=== PATIENT | female | born 1990 | race American Indian/Alaskan Native ===

== ENCOUNTER 2021-09-04 13:36 | Emergency (ER) | payer OTHER ==
[2021-09-04 13:56] VITALS: BP 133/63; PULSE 107
[2021-09-04] MEDS ORDERED: FLU Vacc QS2021-22 36MOS UP/PF 60 MCG/0.5 ML Syringe IM ONE (14:30)
[2021-09-04] MEDS ORDERED: Ondansetron 4 MG/2 ML SDV IVPUSH ONE (14:32)
[2021-09-04] MEDS ORDERED: Sodium Chloride 0.9% 10 ML Syringe FLUSH PRN ×2 (14:32→14:43)
[2021-09-04] MEDS ORDERED: Iopamidol 612 MG/ML 50 ML SDV IVPUSH ONE (14:43)
[2021-09-04] MEDS ORDERED: Iopamidol 612 MG/ML 100 ML Bottle IVPUSH ONE (14:43)
--- NOTE | 2021-09-04 14:48 | EDM.PDOC ---
ED HPI GENERAL MEDICAL PROBLEM - General Chief Complaint: Behavioral/Psych Stated Complaint: R SIDE ABDOMINAL PAIN Time Seen by Provider: 09/04/21 14:23 Source of Information: Reports: Patient, RN Notes Reviewed History Limitations: Reports: No Limitations - History of Present Illness INITIAL COMMENTS - FREE TEXT/NARRATIVE: Patient is a 31-year-old female who presents to the ER for the evaluation of her right upper quadrant abdominal pain. Patient states that she was diagnosed with cirrhosis and AIDS in [place] in November 2020 through an ER. Patient states she is concerned about her increasing right upper quadrant abdominal pain due to the diagnosis of AIDS and cirrhosis. States that the pain seems to worsen after she eats, and her last food intake were some chicken strips and fries and did note that the pain was worse after this. Having some nausea but no vomiting. States her last bowel movement was yesterday and that was normal for her. States she has not had any diarrhea type stools. Has not tried any [id number] medications for the pain. Other than obesity, "AIDS and cirrhosis" patient denies any past medical history. Not having any fevers or chills, cough or shortness of breath. - Related Data Allergies Allergy/AdvReac Type Severity Reaction Status Date / Time erythromycin base Allergy Hives Verified 09/04/21 14:01 strawberry Allergy Swelling Verified 08/12/20 11:27 sulfamethoxazole Allergy Hives Verified 09/04/21 14:01 [From Bactrim] trimethoprim [From Bactrim] Allergy Hives Verified 09/04/21 14:01 Home Meds: Home Meds . 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 ED EXAM, GI/ABD - Physical Exam Exam: See Below Exam Limited By: No Limitations General Appearance: Alert, WD/WN, No Apparent Distress Respiratory/Chest: No Respiratory Distress, Lungs Clear, Normal Breath Sounds, No Accessory Muscle Use, Chest Non-Tender Cardiovascular: Normal Peripheral Pulses, Regular Rate, Rhythm, No Edema GI/Abdominal Exam: Normal Bowel Sounds, Soft, No Distention, No Mass, Tender (RUQ abd pain) Extremities: Normal Inspection, Normal Capillary Refill Neurological: Alert, Oriented, Normal Cognition, No Motor/Sensory Deficits Psychiatric: Normal Affect, Normal Mood Skin Exam: Warm, Dry, Intact, Normal Color, No Rash Course - Vital Signs Last Recorded V/S: Last Vital Signs Temp 97.5 F 09/04/21 13:51 Pulse 107 H 09/04/21 13:51 Resp 16 09/04/21 13:51 BP 133/63 09/04/21 13:51 Pulse Ox 95 09/04/21 13:51 - Orders/Labs/Meds Orders: Active Orders 24 hr Category Date Time Status Peripheral IV Care [RC] . DIRECTED Care 09/04/21 14:32 Ordered Vaccine to be Administered/Admin Charge [RC] ASDIRECTED Care 09/04/21 14:08 Active GAMMA GLUTAMYL TRANSFERASE,GGT [CHEM] Stat Lab 09/04/21 14:32 Ordered LIPASE [CHEM] Stat Lab 09/04/21 14:32 Ordered Sodium Chloride 0.9% [Saline Flush] Med 09/04/21 14:32 Ordered 10 ml FLUSH ASDIRECTED PRN Sodium Chloride 0.9% [Saline Flush] Med 09/04/21 14:43 Active 10 ml FLUSH ONETIME PRN Peripheral IV Insertion Adult [OM.PC] Routine Oth 09/04/21 14:32 Ordered Medication Orders Sodium Chloride (Sodium Chloride 0.9% 10 Ml Syringe) 10 ml FLUSH ASDIRECTED PRN PRN Reason: Keep Vein Open Last Admin: 09/04/21 15:03 Dose: 10 ml Documented by: SHIMA Sodium Chloride (Sodium Chloride 0.9% 10 Ml Syringe) 10 ml FLUSH ONETIME PRN PRN Reason: IV FLUSH Last Admin: 09/04/21 15:28 Dose: 10 ml Documented by: VELASQUEZ Labs: Laboratory Tests 09/04/21 09/04/21 09/04/21 Range/Units 15:00 15:00 15:00 WBC 10.42 H (3.98-10.04) K/mm3 RBC 4.65 (3.98-5.22) M/mm3 Hgb 12.4 D (11.2-15.7) gm/dl Hct 38.6 (34.1-44.9) % MCV 83.0 (79.4-94.8) fl MCH 26.7 (25.6-32.2) pg MCHC 32.1 L (32.2-35.5) g/dl RDW Std Deviation 40.9 (36.4-46.3) fL Plt Count 333 (182-369) K/mm3 MPV 9.6 (9.4-12.3) fl Neut % (Auto) 79.4 H (34.0-71.1) % Lymph % (Auto) 14.4 L (19.3-51.7) % [place] % (Auto) 5.0 (4.7-12.5) % Eos % (Auto) 0.9 (0.7-5.8) Baso % (Auto) 0.1 (0.1-1.2) % Neut # (Auto) 8.28 H (1.56-6.13) K/mm3 Lymph # (Auto) 1.50 (1.18-3.74) K/mm3 [place] # (Auto) 0.52 H (0.24-0.36) K/mm3 Eos # (Auto) 0.09 (0.04-0.36) K/mm3 Baso # (Auto) 0.01 (0.01-0.08) K/mm3 Sodium 140 (136-145) mEq/L Potassium 3.5 (3.5-5.1) mEq/L Chloride 104 (98-107) mEq/L Carbon Dioxide 27 (21-32) mEq/L Anion Gap 12.5 (5-15) BUN 15 (7-18) mg/dL Creatinine 0.7 (0.55-1.02) mg/dL Est Cr Clr Drug Dosing TNP Estimated GFR (MDRD) > 60 (>60) mL/min BUN/Creatinine Ratio 21.4 H (14-18) Glucose 101 H (70-99) mg/dL Calcium 8.6 (8.5-10.1) mg/dL Total Bilirubin 0.5 (0.2-1.0) mg/dL AST 23 (15-37) U/L ALT 20 (14-59) U/L Alkaline Phosphatase 82 (46-116) U/L Total Protein 7.8 (6.4-8.2) g/dl Albumin 3.4 (3.4-5.0) g/dl Globulin 4.4 gm/dL Albumin/Globulin Ratio 0.8 L (1-2) TSH 3rd Generation 0.829 (0.358-3.74) uIU/mL Urine HCG, Qual (NEGATIVE) Salicylates 1.3 L (2.8-20) mg/dL Urine Opiates Screen (VLHHHC=111) Ur Buprenorphine Scrn (CUTOFF=10) Ur Oxycodone Screen (VVS4CY=337) Urine Methadone Screen (LIAUZR=222) Ur Propoxyphene Screen (FETISI=433) Acetaminophen 0 L (10-30) ug/mL Ur Barbiturates Screen (PTOSAX=667) Ur Tricyclics Screen (CDWLNV=211) Ur Phencyclidine Scrn (CUTOFF=25) Ur Amphetamine Screen (GCWJTX=014) U Methamphetamines Scrn (GQDEIA=828) U Benzodiazepines Scrn (IJXWXJ=643) U Cocaine Metab Screen (QBCIDJ=153) U Marijuana (THC) Screen (CUTOFF=50) Ethyl Alcohol 0.00 (0.00) gm% Influenza Type A RNA (NEGATIVE) Influenza Type B RNA (NEGATIVE) SARS-CoV-2 RNA (WILL) (NEGATIVE) 09/04/21 09/04/21 09/04/21 Range/Units 15:05 15:07 15:18 WBC (3.98-10.04) K/mm3 RBC (3.98-5.22) M/mm3 Hgb (11.2-15.7) gm/dl Hct (34.1-44.9) % MCV (79.4-94.8) fl MCH (25.6-32.2) pg MCHC (32.2-35.5) g/dl RDW Std Deviation (36.4-46.3) fL Plt Count (182-369) K/mm3 MPV (9.4-12.3) fl Neut % (Auto) (34.0-71.1) % Lymph % (Auto) (19.3-51.7) % Sol[place] % (Auto) (4.7-12.5) % Eos % (Auto) (0.7-5.8) Baso % (Auto) (0.1-1.2) % Neut # (Auto) (1.56-6.13) K/mm3 Lymph # (Auto) (1.18-3.74) K/mm3 Sol[place] # (Auto) (0.24-0.36) K/mm3 Eos # (Auto) (0.04-0.36) K/mm3 Baso # (Auto) (0.01-0.08) K/mm3 Sodium (136-145) mEq/L Potassium (3.5-5.1) mEq/L Chloride (98-107) mEq/L Carbon Dioxide (21-32) mEq/L Anion Gap (5-15) BUN (7-18) mg/dL Creatinine (0.55-1.02) mg/dL Est Cr Clr Drug Dosing Estimated GFR (MDRD) (>60) mL/min BUN/Creatinine Ratio (14-18) Glucose (70-99) mg/dL Calcium (8.5-10.1) mg/dL Total Bilirubin (0.2-1.0) mg/dL AST (15-37) U/L ALT (14-59) U/L Alkaline Phosphatase (46-116) U/L Total Protein (6.4-8.2) g/dl Albumin (3.4-5.0) g/dl Globulin gm/dL Albumin/Globulin Ratio (1-2) TSH 3rd Generation (0.358-3.74) uIU/mL Urine HCG, Qual Negative (NEGATIVE) Salicylates (2.8-20) mg/dL Urine Opiates Screen Presumptive positive H (CXRBTJ=152) Ur Buprenorphine Scrn Negative (CUTOFF=10) Ur Oxycodone Screen Negative (HGW7PE=730) Urine Methadone Screen Negative (QZMYAY=875) Ur Propoxyphene Screen Negative (IILUVK=342) Acetaminophen (10-30) ug/mL Ur Barbiturates Screen Negative (TKXUMM=986) Ur Tricyclics Screen Negative (LDVRYG=495) Ur Phencyclidine Scrn Negative (CUTOFF=25) Ur Amphetamine Screen Presumptive positive H (BLEBIW=334) U Methamphetamines Scrn Presumptive positive H (ENEZCV=412) U Benzodiazepines Scrn Negative (ISUOIZ=332) U Cocaine Metab Screen Negative (RSJYBW=068) U Marijuana (THC) Screen Presumptive positive H (CUTOFF=50) Ethyl Alcohol (0.00) gm% Influenza Type A RNA Negative (NEGATIVE) Influenza Type B RNA Negative (NEGATIVE) SARS-CoV-2 RNA (WILL) Negative (NEGATIVE) Meds: Medications Generic Name Dose Route Start Last Admin Trade Name Freq PRN Reason Stop Dose Admin Sodium Chloride 10 ml 09/04/21 14:32 09/04/21 15:03 Sodium Chloride 0.9% 10 Ml Syringe FLUSH 10 ml ASDIRECTED PRN Administration Keep Vein Open Sodium Chloride 10 ml 09/04/21 14:43 09/04/21 15:28 Sodium Chloride 0.9% 10 Ml Syringe FLUSH 10 ml ONETIME PRN Administration IV FLUSH Discontinued Medications Generic Name Dose Route Start Last Admin Trade Name Freq PRN Reason Stop Dose Admin Influenza Virus Vaccine 60 mcg 09/04/21 14:30 Flu Vacc [id number] 36mos Up/Pf 60 Mcg/0.5 Ml Syringe IM 09/04/21 14:31 .ONCE ONE Iopamidol 50 ml 09/04/21 14:43 09/04/21 15:27 Iopamidol 612 Mg/Ml 50 Ml Sdv IVPUSH 09/04/21 14:44 50 ml ONETIME ONE Administration Iopamidol 100 ml 09/04/21 14:43 09/04/21 15:27 Iopamidol 612 Mg/Ml 100 Ml Bottle IVPUSH 09/04/21 14:44 100 ml ONETIME ONE Administration Ondansetron HCl 4 mg 09/04/21 14:32 09/04/21 15:03 Ondansetron 4 Mg/2 Ml Sdv IVPUSH 09/04/21 14:33 4 mg ONETIME ONE Administration - Re-Assessments/Exams Free Text/Narrative Re-Assessment/Exam: 09/04/21 14:51 Patient presents to the ER for the evaluation of her right upper quadrant abdominal pain. After evaluating the patient, this could be gallbladder in etiology as the pain seems to worsen after she eats fatty fried foods. Triage nurse was concerned about the possibility of her being psychotic. Does have a history of schizophrenia but does not appear to be on any medications. I will discuss her case with Dr. Carvalho after her labs have resulted to see if we could start her on appropriate dose of medication and maybe have her follow-up with him in his clinic for ongoing management. 09/04/21 16:30 Patient's urine drug screen was presumptive positive for amphetamines, methamphetamines, opioids and marijuana. Likely that the patient was "hearing voices" due to her amphetamine use. Patient CT was impressive for gallstones in the patient's gallbladder without surrounding inflammation concerning for cholecystitis. Patient's white count mildly elevated at 10.4 which could be acute stress reaction. She has had no fever or other worse like sick symptoms. COVID-19/influenza screen were negative and CMP was unremarkable at today's visit otherwise. Still awaiting a GGT and lipase level. I did discuss the patient's case with Dr. Rowe but due to the patient's body habitus, he would have her referred to Case if possible. Departure - Departure Time of Disposition: 17:05 Disposition: Home, Self-Care 01 Condition: Good Clinical Impression: Cholelithiasis Qualifiers: Cholelithiasis location: gallbladder Cholecystitis presence: without cholecyst itis Biliary obstruction: without biliary obstruction Qualified Code(s): K80.20 - Calculus of gallbladder without cholecystitis without obstruction - Discharge Information *PRESCRIPTION DRUG MONITORING PROGRAM REVIEWED*: No *COPY OF PRESCRIPTION DRUG MONITORING REPORT IN PATIENT SUZANNA: No Instructions: Gallbladder Eating Plan Referrals: Juana Scherer PA-C [Primary Care Provider] - Martinez Louis MD [Ordering Only Provider] - Forms: ED Department Discharge Additional Instructions: Your evaluated in the ER today for your right upper quadrant abdominal pain. Work-up in the ER did include multiple labs, and abdomen pelvis CT for ongoing management. This did show that you have gallstones, but no sign of an infection in your gallbladder at this time. Recommend you try to eat a low-fat diet, and stay away from fried, fatty foods as this seems to cause more pain associated with gallstones. You have been given a handout on a gallbladder eating plan, so you should know which foods to hopefully avoid. If you should need any sort of surgical management, I would recommend that you follow-up with [facility] in [place], Dr. Louis for ongoing management. Please call his clinic at [phone] for consult. Do not hesitate to return to the ER at any time if symptoms change or worsen. Sepsis Event Note (ED) - Focused Exam Vital Signs: Vital Signs Temp Pulse Resp BP Pulse Ox 09/04/21 13:51 97.5 F 107 H 16 133/63 95 - My Orders Last 24 Hours: My Active Orders 09/04/21 14:08 Vaccine to be Administered/Admin Charge [RC] ASDIRECTED 09/04/21 14:32 Peripheral IV Care [RC] . DIRECTED GAMMA GLUTAMYL TRANSFERASE,GGT [CHEM] Stat LIPASE [CHEM] Stat Sodium Chloride 0.9% [Saline Flush] 10 ml FLUSH ASDIRECTED PRN Peripheral IV Insertion Adult [OM.PC] Routine 09/04/21 14:43 Sodium Chloride 0.9% [Saline Flush] 10 ml FLUSH ONETIME PRN - Assessment/Plan Last 24 Hours: My Active Orders 09/04/21 14:08 Vaccine to be Administered/Admin Charge [RC] ASDIRECTED 09/04/21 14:32 Peripheral IV Care [RC] . DIRECTED GAMMA GLUTAMYL TRANSFERASE,GGT [CHEM] Stat LIPASE [CHEM] Stat Sodium Chloride 0.9% [Saline Flush] 10 ml FLUSH ASDIRECTED PRN Peripheral IV Insertion Adult [OM.PC] Routine 09/04/21 14:43 Sodium Chloride 0.9% [Saline Flush] 10 ml FLUSH ONETIME PRN
--- NOTE | 2021-09-04 15:42 | CT ---
CT abdomen and pelvis Technique: Multiple axial sections were obtained from above the dome of the diaphragm inferiorly through the pubic symphysis. Intravenous contrast was utilized. No oral contrast has been given. Delayed images were also obtained through the abdomen and pelvis. Reconstructed coronal and sagittal images were obtained. Comparison: No prior abdominal or pelvic imaging is available. Findings: Visualized lung bases show nothing acute. Liver contains no focal abnormality. Gallbladder shows multiple low density areas compatible with multiple small gallstones. No inflammatory change is seen at this time around the gallbladder. Spleen size is normal. Kidneys show symmetric contrast enhancement. Small cyst is noted within the left kidney measuring 1.2 cm. Very minimal low density finding is seen within the lower left kidney measuring 5 mm which is indeterminate regarding Hounsfield unit measurements but most likely represents a small cyst. Delayed images show contrast excretion from both kidneys as well as contrast within nondilated ureters into the bladder. Pancreas appears within normal limits. Abdominal aorta shows no aneurysm. No retroperitoneal adenopathy is seen. No mesenteric abnormalities are seen. Appendix is not visualized. No pelvic mass or adenopathy is seen. Bone window settings were reviewed which show disc space narrowing within the thoracic spine with several levels of vacuum disc phenomena. There is also disc space narrowing at L5-S1 with posterior osteophytes. Impression: 1. Numerous low density gallstones within the gallbladder. No inflammatory change is seen around the gallbladder. 2. Degenerative change within the lumbar and thoracic spine. 3. Several incidental cysts within the left kidney. 4. No additional abnormality is appreciated on CT study of the abdomen and pelvis. Diagnostic code #3
[2021-09-04 15:44] LABS: ACETAMINOPHEN 0 ug/mL (10-30)
[2021-09-04 16:01] LABS: CORONAVIRUS COVID-19 NAA NEGATIVE (NEGATIVE)
== END 2021-09-04 17:15 | disposition home or self-care (01) ==
LOC: JD.ED 13:36
DX: K80.20 Calculus of gallbladder without cholecystitis without obstruction (principal); E66.9 Obesity, unspecified; Z68.30 Body mass index [BMI] 30.0-30.9, adult; Z88.1 Allergy status to other antibiotic agents; Z91.018 Allergy to other foods; Z88.2 Allergy status to sulfonamides; Z20.822 Contact with and (suspected) exposure to COVID-19
CPT/HCPCS: 0240U; 36415; 74177; 80053; 80143; 80179; 80306; 80307; 81025; 82977; 83690; 84443; 85025; 96374; 99284; J2405; Q9967